=== PATIENT | female | born 1970 | race Caucasian/White ===

== ENCOUNTER 2017-10-15 08:47 | Observation (INO) | payer OTHER ==
[~2017-10-15 08:47] MED LIST: CEFAZOLIN 1 GM INJ; LIDOCAINE 2% (SDV) 5 ML INJ; METOCLOPRAMIDE 10 MG INJ; ONDANSETRON 4 MG INJ
[2017-10-15 11:15] LABS: ADD MAN DIFF? NO
[2017-10-15] MEDS ORDERED: FENTAnyl 50 MCG/ML VIAL ×2 (11:19→13:52)
[2017-10-15] MEDS ORDERED: MIDAZOLAM 1 MG/ML 2 ML INJ (11:19)
[2017-10-15] MEDS ORDERED: PROPOFOL 20 ML (11:19)
[2017-10-15] MEDS ORDERED: DEXAMETHASONE 4 MG/ML 1 ML INJ (11:20)
[2017-10-15 11:22] LABS: WHITE BLOOD COUNT 10.8 10^3/ul (4.8-10.8)
[2017-10-15 11:22] LABS: BASOPHIL # 0.1 10^3/ul (0.0-0.1); BASOPHILS % 0.7 % (0.0-2.0); EOSINOPHILS # 0.3 10^3/ul (0.0-0.5); EOSINOPHILS % 2.8 % (0.0-7.0); HEMATOCRIT 41.8 % (37.0-47.0); HEMOGLOBIN 12.6 g/dl (12.0-16.0); LYMPHOCYTES # 3.3 10^3/ul (0.8-2.9); LYMPHOCYTES % 30.5 % (15.0-51.0); MEAN CORPUSCULAR HEMOGLOBIN 25.2 pg (29.0-33.0); MEAN CORPUSCULAR HGB CONC 30.1 g/dl (32.0-37.0); MEAN CORPUSCULAR VOLUME 83.6 fl (82.0-101.0); MEAN PLATELET VOLUME 10.5 fl (7.4-10.4); MONOCYTE # 0.8 10^3/ul (0.3-0.9); MONOCYTES % 7.6 % (0.0-11.0); NEUTROPHIL # 6.2 10^3/ul (1.6-7.5); NEUTROPHILS % 57.8 % (39.0-77.0); PLATELET COUNT 439 10^3/UL (140-415); RED CELL DISTRIBUTION WIDTH 16.1 % (11.5-14.5)
[2017-10-15 11:43] LABS: PROTIME 12.2 Sec (11.9-14.9)
[2017-10-15 11:44] LABS: ALANINE AMINOTRANSFERASE 18 IU/L (13-69); ALBUMIN 4.3 g/dl (3.3-4.9); ALBUMIN/GLOBULIN RATIO 1.34; ALKALINE PHOSPHATASE 52 IU/L (42-121); ANION GAP 15 (8-16); ASPARTATE AMINO TRANSFERASE 18 IU/L (15-46); BLOOD UREA NITROGEN 12 mg/dl (7-20); CALCIUM 9.7 mg/dl (8.4-10.2); CARBON DIOXIDE 23 mmol/L (21-31); CHLORIDE 107 mmol/L (97-110); CREATININE 0.86 mg/dl (0.44-1.00); GLUCOSE 102 mg/dl (70-220); POTASSIUM 4.3 mmol/L (3.5-5.1); SODIUM 141 mmol/L (135-144); TOTAL PROTEIN 7.5 g/dl (6.1-8.1)
[2017-10-15 11:45] LABS: PARTIAL THROMBOPLASTIN TIME 28.6 Sec (25.0-35.0)
[2017-10-15] MEDS ORDERED: HYDROmorphONE 2 MG/ML SYG (14:03)
[2017-10-15] MEDS ORDERED: PHENYLephrine (100 MCG/ML) 5ML SYG (14:19)
[2017-10-15] MEDS ORDERED: hydrALAzine 20 MG INJ IV (14:30)
[2017-10-15] MEDS ORDERED: HYDROmorphONE 1 MG/5 ML IV SYRINGE IV ×2 (14:30)
[2017-10-15] MEDS ORDERED: FENTAnyl 50 MCG/ML VIAL IV ×2 (14:30)
[2017-10-15] MEDS ORDERED: KETOROLAC 30 MG INJ IV (14:30)
[2017-10-15] MEDS ORDERED: IPRATROPIUM (NEB) 0.5 MG/2.5 ML AMP HHN (14:30)
[2017-10-15] MEDS ORDERED: ONDANSETRON 4 MG INJ IV (14:30)
[2017-10-15] MEDS ORDERED: MEPERIDINE 25 MG INJ IV (14:30)
[2017-10-15] MEDS ORDERED: DIPHENHYDRAMINE 50 MG INJ IV (14:30)
[2017-10-15] MEDS ORDERED: IBUPROFEN 600 MG TAB PO ×2 (14:30→15:30)
[2017-10-15] MEDS ORDERED: LABETALOL HCL 20MG INJ IV (14:30)
[2017-10-15] MEDS: ALBUTEROL HFA 8 GM INHALER INH (20:00)
[2017-10-15] MEDS: HYDROCODONE/APAP (7.5/325) TAB PO (20:01)
[2017-10-16] MEDS: HYDROCODONE/APAP (7.5/325) TAB PO ×3 (01:44→09:57)
[2017-10-16] MEDS: ALBUTEROL HFA 8 GM INHALER INH (05:44)
[2017-10-16] MEDS: CEFTRIAXONE 1 GM/50 ML (PMX) 50 ML IVPB (09:15)
== END 2017-10-16 10:25 | disposition home or self-care (01) ==
LOC: SDS 08:47 → PP2 15:38
DX: D25.9 Leiomyoma of uterus, unspecified (principal); J45.909 Unspecified asthma, uncomplicated; I10 Essential (primary) hypertension
CPT/HCPCS: 58120; 71045; 80053; 84703; 85025; 85610; 85730; 88305; 93005; G0378